=== PATIENT | female | born 1945 | race Caucasian/White ===

== ENCOUNTER 2018-02-05 15:49 | Outpatient (CLI) | payer MEDICARE, OTHER | END 2018-02-05 15:50 | disposition critical access hospital (66) | LOC: EMS 15:49 | PROVIDERS: ATTEND Surgery | DX: R51 Headache (principal); R41.0 Disorientation, unspecified | CPT/HCPCS: A0425; A0429 ==

== ENCOUNTER 2018-02-05 16:19 | Observation (INO) | payer MEDICARE, OTHER ==
--- NOTE | 2018-02-05 16:51 | ED Physician Documentation ---
History of Present Illness - Stated complaint Stated Complaint: CONFUSIN / HEADACHE - Chief complaint Chief Complaint: General - History obtained from History obtained from: Patient - History of Present Illness Timing: Today (About 1 PM today she became acutely confused with word finding difficulties and a mild headache. Of note she has a history of PEs and coronary disease status post CABG and stents. She is on both Xarelto and Plavix. The headache is much better but not quite gone and the same is true of her word finding difficulties.) Review of Systems Ten Systems: 10 systems reviewed and negative Constitutional: denies: Fever, Chills Throat: denies: Dental pain / toothache, Sore throat Cardiac: denies: Chest pain / pressure, Palpitations Respiratory: denies: Dyspnea, Cough PD PAST MEDICAL HISTORY - Present Medications Home Medications: Ambulatory Orders Medication Instructions Recorded Confirmed Citalopram [CeleXA] 40 mg PO DAILY 02/05/18 02/05/18 Clopidogrel [Plavix] 75 mg PO DAILY 02/05/18 02/05/18 Isosorbide Mononitrate ER [Imdur] 30 mg PO DAILY 02/05/18 02/05/18 Pantoprazole [Protonix] 40 mg PO DAILY PM 02/05/18 02/05/18 RX: Atenolol 12.5 mg PO DAILY PM 02/05/18 02/05/18 RX: Buspirone HCl 10 mg PO BID 02/05/18 02/05/18 RX: Ferrous Sulfate 325 mg PO DAILY PM 02/05/18 02/05/18 RX: Meloxicam 15 mg PO DAILY 02/05/18 02/05/18 RX: Nefazodone HCl 100 mg PO DAILY 02/05/18 02/05/18 RX: Nefazodone HCl 400 mg PO QPM 02/05/18 02/05/18 RX: Pravastatin Sodium 80 mg PO 02/05/18 Rivaroxaban [Xarelto] 20 mg PO DAILY 02/05/18 02/05/18 Zolpidem [Ambien] 10 mg PO HS 02/05/18 02/05/18 amLODIPine [Norvasc] 2.5 mg PO DAILY 02/05/18 02/05/18 - Allergies Allergies/Adverse Reactions: Allergies Allergy/AdvReac Type Severity Reaction Status Date / Time buspirone [From BuSpar] AdvReac Mild Headache Verified 02/05/18 17:00 Penicillins AdvReac Dizziness Verified 02/05/18 17:00 PD ED PE NORMAL - Vitals Vital signs reviewed: Yes - General General: Alert and oriented X 3, No acute distress - HEENT HEENT: PERRL, EOMI - Neck Neck: Supple, no meningeal sign, No bony TTP, No bruit - Cardiac Cardiac: RRR, No murmur - Respiratory Respiratory: No respiratory distress, Clear bilaterally - Abdomen Abdomen: Normal bowel sounds, Soft, Non tender - Neuro Neuro: Alert and oriented X 3, Normal speech, Other (She has very mild occasional word finding difficulties, but scores a 0 on the NIHSS) - Psych Psych: Normal mood, Normal affect Results - Vitals Vitals: Vital Signs - 24 hr 02/05/18 02/05/18 02/05/18 16:29 16:44 18:27 Temperature 36.6 C Heart Rate 66 64 63 Respiratory 16 18 15 Rate Blood Pressure 157/78 H 157/78 H 145/75 H O2 Saturation 100 100 96 02/05/18 19:05 Temperature Heart Rate 68 Respiratory 17 Rate Blood Pressure 162/74 H O2 Saturation 98 Oxygen O2 Source Room air - EKG (time done) 1724 Rate: Rate (enter#) (62) Rhythm: NSR [place]: Normal Intervals: Normal MA Ischemia: Non specific changes (Nonspecific findings including long QT, RSR prime in V1, left anterior fascicular block. No priors for comparison.) - Labs Labs: Laboratory Tests 02/05/18 02/05/18 17:00 17:00 WBC 7.8 RBC 4.26 Hgb 12.9 Hct 38.3 MCV 89.9 MCH 30.2 MCHC 33.6 RDW 14.2 Plt Count 270 MPV 8.4 Neut # (Auto) 4.8 Lymph # (Auto) 1.7 [place] # (Auto) 0.9 Eos # (Auto) 0.3 Baso # (Auto) 0.1 Absolute Nucleated RBC 0.00 Nucleated RBC % 0.1 Sodium 140 Potassium 3.8 Chloride 105 Carbon Dioxide 27 Anion Gap 8.0 BUN 15 Creatinine 0.6 Estimated GFR (MDRD) 99 Glucose 105 H Calcium 9.0 Total Bilirubin 0.5 AST 18 ALT 18 Alkaline Phosphatase 64 Total Protein 6.5 L Albumin 3.5 Globulin 3.0 Albumin/Globulin Ratio 1.2 Lipase 27 PD MEDICAL DECISION MAKING - ED course ED course: 72-year-old woman with acute word finding difficulty, much better on arrival and continued to improve during her ER stay. Consistent with a TIA. Head CT normal. She had specific concerns and there was a delay to admission because s he wanted to make sure that the observation stay would be paid for. I spoke with [facility] and they felt that it would be covered. She has Medicare primary period. Call to Dr. Culp for observation at 6:55 PM. - Sepsis Event Vital Signs: Vital Signs - 24 hr 02/05/18 02/05/18 02/05/18 16:29 16:44 18:27 Temperature 36.6 C Heart Rate 66 64 63 Respiratory 16 18 15 Rate Blood Pressure 157/78 H 157/78 H 145/75 H O2 Saturation 100 100 96 02/05/18 19:05 Temperature Heart Rate 68 Respiratory 17 Rate Blood Pressure 162/74 H O2 Saturation 98 Oxygen O2 Source Room air Departure - Departure Disposition: ED Place in Observation Clinical Impression: TIA (transient ischemic attack) Condition: Good Record reviewed to determine appropriate education?: Yes Discharge Date/Time: 02/05/18 19:45
[2018-02-05 17:05] LABS: BASOPHILS # (AUTO) 0.1 10^3/uL (0.0-0.1); BASOPHILS % (AUTO) 0.9 %; EOSINOPHILS # (AUTO) 0.3 10^3/uL (0.0-0.7); EOSINOPHILS % (AUTO) 3.5 %; HGB - HEMOGLOBIN 12.9 g/dL (12.0-16.0); LYMPHOCYTES # (AUTO) 1.7 10^3/uL (1.5-3.5); LYMPHOCYTES % (AUTO) 22.4 %; MEAN CORPUSCULAR HEMOGLOBIN 30.2 pg (27.0-31.0); MEAN CORPUSCULAR HGB CONC 33.6 g/dL (32.0-36.0); MEAN CORPUSCULAR VOLUME 89.9 fL (81.0-99.0); MEAN PLATELET VOLUME 8.4 fL (7.9-10.8); MONOCYTES # (AUTO) 0.9 10^3/uL (0.0-1.0); MONOCYTES % (AUTO) 11.4 %; NEUTROPHILS # (AUTO) 4.8 10^3/uL (1.5-6.6); NEUTROPHILS % (AUTO) 61.8 %; PLT - PLATELET COUNT 270 10^3/uL (130-450); RED BLOOD COUNT 4.26 10^6/uL (4.20-5.40); RED CELL DISTRIBUTION WIDTH 14.2 % (12.0-15.0); WHITE BLOOD COUNT 7.8 x10^3/uL (4.8-10.8)
[2018-02-05 17:22] LABS: ALBUMIN 3.5 g/dL (3.2-5.5); ALBUMIN/GLOBULIN RATIO 1.2 (1.0-2.2); BILIRUBIN,TOTAL 0.5 mg/dL (0.2-1.0); CREATININE 0.6 mg/dL (0.4-1.0); TOTAL PROTEIN 6.5 g/dL (6.7-8.2)
--- NOTE | 2018-02-05 17:42 | CT Report ---
Reason: TIA sx Procedure Date: 02/05/2018 Accession Number: [id number] / [id number] Procedure: CT - Head W/O CPT Code: FULL RESULT: EXAM: CT HEAD EXAM DATE: 02/05/2018 05:14 PM. CLINICAL HISTORY: TIA sx. COMPARISON: None. TECHNIQUE: Multiaxial CT images were obtained from the foramen magnum to the vertex. Reformats: Sagittal and coronal. IV contrast: None. In accordance with CT protocol optimization, one or more of the following dose reduction techniques were utilized for this exam: automated exposure control, adjustment of mA and/or KV based on patient size, or use of iterative reconstructive technique. FINDINGS: Parenchyma: No intraparenchymal hemorrhage. No evidence of mass, midline shift, or CT findings of acute infarction. Dotson-white differentiation is distinct. Diffuse chronic microangiopathic white matter changes are evident. Extraaxial Spaces: Normal for age. No subdural or epidural collections identified. Ventricles: The ventricles and cortical sulci are enlarged, consistent with age-related tissue loss. Sinuses and orbits: Imaged paranasal sinuses, orbits, and mastoids show no significant abnormality. Bones: No evidence of fracture or calvarial defect. Incidental note of hyperostosis frontalis. Other: None. IMPRESSION: Generalized age-related cortical atrophic changes without evidence of acute intracranial abnormality. RADIA
[2018-02-05] MEDS ORDERED: SODIUM CHLORIDE FLUSH 0.9% 10 ML SYRINGE IVP PRN (19:13)
[2018-02-05] MEDS ORDERED: ONDANSETRON 4 MG/2 ML VIAL IVP PRN (19:23)
[2018-02-05] MEDS ORDERED: ACETAMINOPHEN 325 MG TABLET PO PRN (19:23)
[2018-02-05] MEDS ORDERED: ONDANSETRON ODT 4 MG TABLET TL PRN (19:23)
[2018-02-05] MEDS ORDERED: oxyCODONE 5 MG TABLET PO PRN (19:23)
[2018-02-05] MEDS ORDERED: ZOLPIDEM 5 MG TABLET PO SCH (21:00)
--- NOTE | 2018-02-05 22:15 | ADVANCE CARE PLANNING NOTE ---
Advance Care Planning - Date/Time Date: 02/05/18 Time: 21:00 - Purpose of encounter Text: Establish her understanding of her disease state considering she has had several cardiac procedures, now having a TIA - Parties in attendance Parties in attendance: Patient and hospitalist, Dr. Jasso - Decisional capacity Decisional capacity of: Patient is minimally impaired. She occasionally has problems remembering words. For instance she does not remember the words "[place]". - Subjective/Patient's story Subjective/Patient's story: She was born and raised in being into [place]. From bang time she went to go live in [place] by 1977. 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 As the years have gone by, her job is very stressful. She ended up going on SSI for severe depression by the age of 59 because of the stresses of her job. 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 However by 2007, with a housing crisis, she was unable to meet the mortgage on both her house and the condominium and ended up losing both. She has gone from living independently in her own home with a decent wage to living on a restricted income of $1300 a month and living in subsidized senior housing in [place]. As she is gotten used to living there, she actually likes it. She just has to be careful to not get into her social work mindset because she ends up helping all of her neighbors. She will end up faring people to doctor's appointments and grocery stores because she is the only one with a car. 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 The [employer] which sold her house recently contacted her and told her that she had $9000 left in her escrow account. So the patient took some of the money to make this trip to [facility]. From [facility] she will go to [place], and then [place]. Unfortunately she started having symptoms of a TIA today and had to be brought to the hospital. While she does have a small social network of friends, she is starting to realize that as she gets older she cannot rely on her friends to take care of her. One sister lives in [place], [place] and has quite a bit of anxiety. She was able to stay with her sister for about 3 months when her apartment had to renovated in [place]. She is not very close to her sister, and it was not a pleasant visit because her sister is very demanding and anxious. Ms Chávez also does not like [place]. Her other brother lives in [place] and her second brother lives in [facility] near [facility]. She is not very close to them. From a functional perspective she still drives her own car, pays her own bills, takes care of entireties her own little apartment. She goes to cardiopulmonary physical therapy 3 times a week. 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 She is finding it harder and harder to get around because of low back pain that radiates down her legs. Left leg is worse than the right. Pain is worse with movement and eliminated by rest. She finds at night her legs do not hurt at all in her best position for lack of pain is to be sitting down or laying down. She worries about that and worries about losing her memory. But she tries not to think about the inevitability of her disease. When I ask her about her understanding of heart disease, and now with this TIA and how that plays into each other, she is tearful. She is frightened. She says that at some level she understands that she will have a heart attack or stroke much like her mother or father but she prefers not to think about it. Her favorite coping mechanism is denial. And she knows it. She says that the information I am giving her frightens her. She is so terrified of dying that she would prefer staying alive disabled in a long-term. But then she laments that she will be in a long-term where no one will visit her because none of her friends are close enough to her to want to visit her in a long-term. So then she worries about being lonely. For short time she was a social organization professor in a assisted facility and realizes that she never wants to end up like those clients. In addition to her fears, she gets very annoyed when her sister talks to her about this. Her sister wants her to make plans. Her sister is more blunt and basically says she needs to be planning her . This annoys the patient. Her sister is afraid that she will end up being the person and has to make decisions for the patient. So the patient feels like her sister is asking her these questions out of her own fear of responsibility and not out of love and concern. So she feels like she is being mulish, crosses her arms across her chest, and says "I am just not go to think about it". - Objective/Medical story Objective/Medical Story: She is a 72-year-old female who has coronary artery disease. First bypass surgery was in 2007, and when she developed terrible shortness of breath and dyspnea on exertion she underwent a second procedure with a single stent in 2015. By the spring 2017 she was continued to have shortness of breath and she received 3 more stents. Somewhere in that time, she was found to have pulmonary embolism. Her shortness of breath was not going away with the stenting. So the surgery other causes of the shortness of breath and found to be having PEs. At that point in time she was on estrogen replacement therapy and the estrogen replacement therapy was stopped. They also feel that she leads a relatively sedentary life even though she goes to cardiopulmonary rehab 3 times a week. Past medical history is that of high blood pressure, coronary artery disease, chronic depression on SSI, chronic insomnia requiring nightly Ambien, pulmonary embolism, obstructive sleep apnea for which she supposed to be on CPAP but forgot to bring those with her on this trip. In the emergency room she has some word finding difficulty. But is otherwise stable on neurological exam. CT of the head is negative. An EKG shows normal sinus rhythm. She is a [facility] patient. And is very concerned about her observa tion status costing her more money. The emergency room physician did contact [facility] and they feel that it is okay for her to be observation status in our hospital as opposed to the [facility]. She is now placed in observation for carotid Dopplers, and echocardiogram. In discussing her CODE STATUS she wants to be a full code. This then led to a discussion on what resuscitation means, and the above discussion about her fears of dying. She is starting to realize that DO NOT RESUSCITATE does not necessarily mean do not treat. - Goals of Care Goals of care determinations: She would like to remain in her little apartment in [place] for as long as possible. She has no interest in moving to [place] or [place] to be near her siblings. She feels that she is not emotionally close enough to them to warrant moving across the country. She also feels that her depression would kick in and she may never recover from a depressive episode if she leaves her little "nest of comfort". Although she fears dementia, she feels that she can stay in her apartment even if she loses her car. There is enough mass transit nearby that she has access to healthcare, food, the library, [employer], and some of her friends that she can remain in her apartment. However, if memory loss becomes difficult, she has not figured out what she wants to do. At this point she would still like to be resuscitated fully. She initially thought the DO NOT RESUSCITATE means do not treat. I explained to her that if she came in septic with multisystem organ failure, we would give her antibiotics, a central line with pressors to keep her blood pressure up, IV hydration, blood products, possibly even temporary tube feedings to see if she turned the corner. If she did not recover from this hypothetical illness, eventually her heart and lungs with stop working. Then we would resuscitate her with chest compressions, continued ventilation support. When I put it to her that way she realized that she may want to consider full treatment options short of chest compressions and intubation in the event of terminal cardiopulmonary arrest. But she is still not ready to make that decision yet. - Plan Plan: Sit down and talk to her counselor about her fears. Described that her fears do not allow her to make decisions that time. See if there is a way that she can get over her fear somewhat to start making plans for the future. Make sure that her wishes are documented. There is a 5 wishes document. There is a POLST form. There is an Advanced Directive. Consider utilizing those tools to communicate her wishes to her family and her doctors. 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 But again, in her fears of dying, she has not wanted to make any proactive decisions with regards to her own end-of-life care. For instance, I asked if she ever wanted palliative care in the last few years of life? Does she want to remain in her own apartment with hospice at end of life? Is it okay if she is placed in a assisted facility if she is so disabled that she can no longer live in her own apartment? All of these questions do not need to be answered now. But the preliminary thought process or start happening so that she can slowly wrap her mind around her fears and make practical plans for the future. I told her that I was very impressed with the plan she is made so far. She lives in senior subsidized housing in a very nice neighborhood. She has excellent access to healthcare, food, senior services. Even if she loses her car she will still be able to access those things. After this admission for observation, depending on the findings of the carotid Dopplers and echocardiogram, I have reassured her that she can continue her trip. Her next stop is [place], and after that she plans on going down [facility] visiting friends [facility]. She is on maximal medical therapy. There is not much more we are going to change at this time. Her risk of stroke is the same now as it was yesterday or next month. I would advise her to live her life the fullest she can. - Code Status Code Status: Attempt Resuscitation - Time Spent on Advance Care Planning Time spent on advance care plannin minutes.
--- NOTE | 2018-02-05 22:33 | HISTORY & PHYSICAL EXAMINATION ---
Chief Complaint - Chief Complaint Chief Complaint: inability to find her words History of Present Illness - Admitted From Admitted From:: ER/friend's home - History Obtained From Records Reviewed: [facility] History obtained from: The patient and Dr. Stern Exam Limitations: Occasional anxiety and feeling overwhelmed - History of Present Illness HPI Comment/Other: She is a joslyn 72-year-old female who usually lives in [facility]. Her atherosclerotic risk factors include documented history of coronary artery d isease with bypass surgery and stenting, hypertension, hyperlipidemia, a severely positive family history. But she does not smoke and she does not have diabetes. She had her first bypass surgery in 2007. Terrible shortness of breath resulted in a single stent in 2015. Another recurrence of terrible shortness of breath resulted in 3 stents in August 2017. In spite of the stenting she continued to be very short of breath and was found to have pulmonary emboli while on estrogen replacement therapy. The estrogen replacement therapy has been stopped, she is having a lot of hot flashes, but her shortness of breath is gotten a lot better. She has not had any problems with neurological deficits before. She recently came into a little bit of money and decided to spend it visiting friends. She went from the [facility] area and flew to [place]. She has been here 2 days visiting her friends here on [facility]. Her next step is to leave the [place] and then continue to [place] via bus, and then continue travel down the [facility] back to [place], seeing friends along the way. Around 1:00 today, she became acutely confused. She could not remember where she was. She could not she did not know if she was in [place] or here in [place]. She started having word finding difficulties and had lucid intact sentences but was forgetting how to say certain words. She had a mild diffuse headache. By the time she got to the emergency room, all of her symptoms were gone. No blurred vision. No focal deficits. No ataxia. Dr. Willams found her to be mildly hypertensive at 157/78, afebrile, oxygenating normally with no acute focal changes on physical exam. She was still having problems finding her words to a very minimal extent. For instance she could not remember how to say [place]. CT of the head is negative. Stroke scale is 0. She is now placed in observation for carotid Dopplers and echocardiogram. MRI is not available at this facility over the weekend. She will need to follow-up with her primary care provider through [facility] in [place] to get that done. History - Past Medical History Cardiovascular: reports: Hypertension, High cholesterol, Coronary artery disease (With ACB 2007, single stent 2015, 3 stents August 2017. Presents as chest pain and severe shortness of breath. ), Deep vein thrombosis, Pulmonary embolism (Presented a severe shortness of breath at the same time as her 3 stenting in August 2017. Attributed to use of hormone replacement therapy and sedentary lifestyle), ND Respiratory: reports: None, Sleep apnea, CPAP use (Did not bring the hose with the machine with her and has not been using it for 3 days) Neuro: reports: Tremors Endocrine/Autoimmune: reports: None GI: reports: GERD (No formal diagnosis. But she has quite a bit of reflux and dyspepsia. Has not had an EGD. Does not remember if she has had an upper GI.) [facility]: reports: Other (. Menopause around age 51. Estrogen replacement therapy until age 72. Now having a lot of hot flashes and anxiety) : reports: None HEENT: reports: Other (Early cataracts) Psych: reports: Depression (Severe and chronic. 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 Sees a psychiatrist every 6 months. Suicidal thoughts but no active planning for it.), Anxiety Musculoskeletal: reports: None Derm: reports: None - Past Surgical History General: reports: Appendectomy /[facility]: reports: Oophrectomy Cardiovascular: reports: CABG, Coronary stent - Family & Social History Family History Comment/Other: Mom had a stroke at age 50 and eventually of his complications at the age of 58. Dad at age 58 of 2 myocardial infarctions. One sister recently had a stent at the age of 74 a few months ago. 2 brothers. One had a stent when he was in his mid 60s. No children Living arrangement: At home Living Situation: Alone, Other (Subsidized [facility] housing) Social History Notes: Born in being him to [place] admitted to [place] by a 1978. 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 For short time she also was a social work assistant in a [facility] facility. She has never been . She lives alone. She smoked lightly in college. Probably 2-3 cigarettes a day for 4 years. Never had a problem with alcohol abuse. Heterosexual. No recreational substance abuse. - Substance History Use: Uses substance without health or social issues: NONE Abuse: Recurrent use of substance despite neg consequences: NONE Dependence: Experiences withdrawal or developed tolerances: NONE - POLST Patient has POLST: No POLST Status: Full Code Meds/Allgy - Home Medications Home Medications: Ambulatory Orders Medication Instructions Recorded Confirmed Atenolol 12.5 mg PO DAILY PM 02/05/18 02/05/18 Buspirone HCl 10 mg PO BID 02/05/18 02/05/18 Citalopram [CeleXA] 40 mg PO DAILY 02/05/18 02/05/18 Clopidogrel [Plavix] 75 mg PO DAILY 02/05/18 02/05/18 Ferrous Sulfate 325 mg PO DAILY PM 02/05/18 02/05/18 Isosorbide Mononitrate ER [Imdur] 30 mg PO DAILY 02/05/18 02/05/18 Meloxicam 15 mg PO DAILY 02/05/18 02/05/18 Nefazodone HCl 100 mg PO DAILY 02/05/18 02/05/18 Nefazodone HCl 400 mg PO QPM 02/05/18 02/05/18 Pantoprazole [Protonix] 40 mg PO DAILY PM 02/05/18 02/05/18 Pravastatin Sodium 80 mg PO 02/05/18 Rivaroxaban [Xarelto] 20 mg PO DAILY 02/05/18 02/05/18 Zolpidem [Ambien] 10 mg PO HS 02/05/18 02/05/18 amLODIPine [Norvasc] 2.5 mg PO DAILY 02/05/18 02/05/18 - Allergies Allergies/Adverse Reactions: Allergies Allergy/AdvReac Type Severity Reaction Status Date / Time buspirone [From BuSpar] AdvReac Mild Headache Verified 02/05/18 17:00 Penicillins AdvReac Dizziness Verified 02/05/18 17:00 Review of Systems - Constitutional Constitutional: denies: Fatigue, Fever, Chills, Malaise, Weakness, Weight gain, Weight loss - Eyes Eyes: denies: Pain, Irritation, Amaurosis, Blurred vision - Ears, Nose & Throat Ears, Nose & Throat: denies: Ear pain, Hearing loss, Hearing aids, Tinnitus, Vertigo, Nasal pain, Nasal congestion, Postnasal drainage - Cardiovascular Cariovascular: denies: Irregular heart rate, Palpitations, Chest pain, Edema, Lightheadedness, Syncope, Exertional dyspnea, Decr. exercise tolerance - Respiratory Respiratory: reports: Apnea. denies: Cough, Sputum production, Wheezing, Snoring, SOB at rest, SOB with exertion - Gastrointestinal Gastrointestinal: reports: Reflux/heartburn (For years. Getting slightly worse. Not being relieved even on a chronic proton pump inhibitor for months.). denies: Abdominal pain, Abdominal distention, Constipation, Diarrhea, Change in bowel habits, Rectal bleeding - Genitourinary Genitourinary: denies: Dysuria, Frequency, Urgency, Hematuria, Incontinence, Flank pain - Musculoskeletal Musculoskeletal: reports: Back pain, Muscle weakness (When she walks too far her legs start to burn and ache, left worse than right. Her lower back starts to ache. She sits down and it all goes away within a few minutes. The pain is in her legs off and on all day long. Her doctor thought it was a statin so stopped it for 2 weeks and it never got any better. So she resumed her statin. The pain goes away at night.). denies: Muscle pain - Integumentary Integumentary: denies: Rash, Pruritis, Lesions - Neurological Neurological: reports: Headache, Memory problems. denies: General weakness, Fo javed weakness, Dizziness, Numbness - Psychiatric Psychiatric: reports: Depression, Anxiety, Suicidal (thoughts but never had plans. sees a psychiatrist and counsellor every 6 months.) - Endocrine Endocrine: denies: Polyuria, Polydypsia - Hematologic/Lymphatic Hematologic/Lymphatic: reports: Anemia. denies: Bruising, Petechiae, Blood clots, Lymphadenopathy Exam - Vital Signs Reviewed Vital Signs: Yes Vital Signs: Vital Signs x48h Temp Pulse Pulse Resp BP BP Pulse Ox 02/05/18 19:59 36.3 C L 72 18 143/81 H 96 02/05/18 19:05 68 17 162/74 H 98 02/05/18 18:27 63 15 145/75 H 96 02/05/18 16:44 64 18 157/78 H 100 02/05/18 16:29 36.6 C 66 16 157/78 H 100 - Physical Exam General Appearance: positive: No acute distress, Alert, Other (Well-nourished well-developed white female who looks her stated age, wearing glasses. Occasionally gets tearful when having to answer some difficult questions about her life.) Eyes Bilateral: positive: PERRL, EOMI ENT: positive: Pharynx nml Neck: positive: No JVD. negative: Stiff neck, Carotid bruit Respiratory: positive: Chest non-tender. negative: Wheezes, Rales, Rhonchi Cardiovascular: positive: Regular rate & rhythm. negative: Systolic murmur, Gallop/S4, Friction rub Peripheral Pulses: positive: 2+ Abdomen: positive: Non-tender, No organomegaly, Nml bowel sounds, No distention Back: positive: Nml inspection Skin: positive: Color nml, No rash, Warm, Dry Extremities: positive: Non-tender, Full ROM, No pedal edema Neurologic/Psychiatric: positive: Oriented x3, CN's nml (2-12), Motor nml, Sensation nml, Other (At times she has problems with dates and words. As her emotions overwhelm her, she will raise her hands to her face and cover them and cry out "I cannot answer this I just cannot think". She once forgot how to say [place]. She once forgot how to say [facility] facility.) Conclusion/Plan - Problem List (1) TIA (transient ischemic attack) Conclusion/Plan: Presenting as acute verbal apraxia. No focal neurological deficits. Symptoms almost completely resolved by the time she gets to the emergency room. Stroke scale is 0. But she does have all the risk factors for cerebrovascular arteriosclerotic disease and already has concurrent coronary artery disease. Already on maximal medical therapy with Plavix, Xarelto, statin, and blood press ure lowering drugs. She is not a smoker, and does not have diabetes. Plan: Placed in observation status Complete TIA workup with carotid Dopplers and echocardiogram MRI in the outpatient setting when she returns to see her primary care provider Continue all of her medications with regards to blood pressure, cholesterol, and anticoagulation as well as platelet inhibitor. (2) Coronary artery disease with hx of myocardial infarct w/o hx of CABG Conclusion/Plan: On maximal medical therapy. At this time no chest pain. No shortness of breath. Blood pressure control. Resume her usual medications (3) Hypertension Conclusion/Plan: Usual goal in a patient who has documented risk factors will be to have a blood pressure in the 130s over 70s if not less. However, with a TIA, allow permissive hypertension. Right now she is in the 150s. She is on amlodipine and atenolol. Both of them low dose at 2.5 mg and 12.5 mg respectively. In the next 48 hours I would consider her to be candidate for raising her amlodipine or her beta-tor to twice the usual dose and to stay on them while she is on vacation. Qualifiers: Hypertension type: essential hypertension Qualified Code(s): I10 - Essential (primary) hypertension (4) Depression with anxiety Conclusion/Plan: Continue her citalopram. Advanced care planning conversation Of over 60 minutes documented under separate dictation (5) Chronic insomnia Conclusion/Plan: She takes Ambien on a daily basis. When she does not take it she starts feeling horrible the next day. She most likely has benzodiazepine tolerance if not addiction. Consider doing a drug holiday. She at first thought I meant do cold turkey like her counselor suggested she might want to try. I told her that just a little too brittle. Why does not she start dropping 1 or 2 pills a week. Do that for a month or 2. Then 3 pills a week for 1 or 2 months. Then 4 pills a week. Then use the Ambien as needed. (6) Obstructive sleep apnea on CPAP Conclusion/Plan: Unfortunately she is without it. I did explain to her that sometimes obstructive sleep apnea that is untreated is associated with stroke. At this point in time I do not think we can get her tubing, etc. to continue on her vacation. As soon as she gets home to make sure she resumes it. (7) Pseudoclaudication Conclusion/Plan: She certainly gives a classic history of bilateral leg pain worse with exertion, completely resolves with rest. Better when she is sitting or lying down and worse with standing and walking. She has got great foot pulses. No ischemia on leg exam. Plan: Would recommend she get an MRI of the spine. Discussed her findings with neurosurgery or orthopedic surgery to see if risk versus benefit discussion would help her make up her mind about what to do. (8) Gastroesophageal reflux disease Conclusion/Plan: She has had this for several years. Not improved with proton pump inhibitors or antacids. Would recommend an EGD in the outpatient setting. She does not remember if she has had one. The EGD would be looking for Coffey's esophagus, size of hiatal hernia. Qualifiers: Esophagitis presence: esophagitis presence not specified Qualified Code(s): K21.9 - Gastro-esophageal reflux disease without esophagitis - Lab Results Fish Bones: 02/05/18 17:00 02/05/18 17:00 - Diagnostic Imaging Results Diagnostic Imaging Results: positive: Final report reviewed Diagnostic Imaging Results Comments: CT of head: FINDINGS: Parenchyma: No intraparenchymal hemorrhage. No evidence of mass, midline shift, or CT findings of acute infarction. Dotson-white differentiation is distinct. Diffuse chronic microangiopathic white matter changes are evident. Extraaxial Spaces: Normal for age. No subdural or epidural collections identified. Ventricles: The ventricles and cortical sulci are enlarged, consistent with age-related tissue loss. Sinuses and orbits: Imaged paranasal sinuses, orbits, and mastoids show no significant abnormality. Bones: No evidence of fracture or calvarial defect. Incidental note of hyperostosis frontalis. Other: None. IMPRESSION: Generalized age-related cortical atrophic changes without evidence of acute intracranial abnormality. - EKG Results EKG Interpreted Independently: Yes EKG Comparison: No prior EKG EKG Findings: NSR. Deep Q in II, AvF. RSR' in V1 and V2. LAD. C/W LAFB. NSSTTW changes. Core Measures - Anticipated LOS I expect patient to be DC'd or transferred within 96 hours.: Yes - DVT/VTE - Prophylaxis VTE/DVT Device ordered at admit?: Yes
[2018-02-05] MEDS: SODIUM CHLORIDE FLUSH 0.9% 10 ML SYRINGE IVP SCH (23:39)
[2018-02-06 06:24] LABS: CHOL/HDL RATIO 4.6 (<4.4); CHOLESTEROL 198 mg/dL; HDL CHOLESTEROL 43 mg/dL; LDL CHOLESTEROL,CALCULATED 126 mg/dL; LDL/HDL RATIO 2.9 (<4.4); VLDL CHOLESTEROL 29 mg/dL
[2018-02-06] MEDS ORDERED: CLOPIDOGREL 75 MG TABLET PO SCH (09:00)
[2018-02-06] MEDS ORDERED: ATENOLOL 25 MG TABLET PO SCH (09:00)
[2018-02-06] MEDS ORDERED: amLODIPine 5 MG TABLET PO SCH (09:00)
[2018-02-06] MEDS ORDERED: CITALOPRAM 10 MG TABLET PO SCH (09:00)
[2018-02-06] MEDS ORDERED: ISOSORBIDE MONONITRATE ER 30 MG TABLET PO SCH (09:00)
[2018-02-06] MEDS ORDERED: POLYETHYLENE GLYCOL 3350 17 GM PACKET PO SCH (09:00)
[2018-02-06] MEDS: SODIUM CHLORIDE FLUSH 0.9% 10 ML SYRINGE IVP SCH (09:05)
[2018-02-06 12:36] LABS: BILIRUBIN,URINE NEGATIVE (NEGATIVE); GLUCOSE, URINE (UA) NEGATIVE (NEGATIVE); KETONES,URINE (UA) NEGATIVE (NEGATIVE); LEUKOCYTE ESTERASE, URINE NEGATIVE (NEGATIVE); NITRITE,URINE NEGATIVE (NEGATIVE); OCCULT BLOOD,URINE TRACE-INTA (NEGATIVE); PH,URINE 7.5 PH (5.0-7.5); PROTEIN,URINE NEGATIVE (NEGATIVE); UROBILINOGEN,URINE 0.2 (NORMAL) E.U./dL (NORMAL)
[2018-02-06 12:37] LABS: CLARITY,URINE CLEAR (CLEAR)
--- NOTE | 2018-02-06 13:51 | Ultrasound Report ---
Reason: sudden verbal apraxia Procedure Date: 02/06/2018 Accession Number: [id number] / [id number] Procedure: US - Carotid Doppler Complete CPT Code: FULL RESULT: EXAM: BILATERAL CAROTID AND VERTEBRAL ARTERY DUPLEX DOPPLER ULTRASOUND: EXAM DATE: 02/06/2018 10:38 AM CLINICAL HISTORY: Sudden verbal apraxia. COMPARISON: None. TECHNIQUE: Grayscale imaging, color Doppler, and duplex spectral Doppler were used to evaluate the carotid and vertebral arteries bilaterally. Static images were obtained. FINDINGS: Mild plaquing of the right and left proximal internal carotid arteries. No significant plaque is identified in the right or left common or internal carotid arteries. Normal antegrade flow is present in bilateral vertebral arteries. VELOCITIES (cm/sec): Right CCA mid: PSV 64 cm/sec CCA dist: PSV 62 cm/sec ICA prox: PSV 60 cm/sec, EDV 15 cm/sec ICA mid: PSV 67 cm/sec, EDV 19 cm/sec ICA dist: PSV 27 cm/sec, EDV 8 cm/sec ECA: PSV 97 cm/sec Vert: PSV 59 cm/sec ICA/CCA: 1.08 Left CCA mid: PSV 83 cm/sec CCA dist: PSV 92 cm/sec ICA prox: PSV 54 cm/sec, EDV 17 cm/sec ICA mid: PSV 46 cm/sec, EDV 17 cm/sec ICA dist: PSV 73 cm/sec, EDV 28 cm/sec ECA: PSV 81 cm/sec Vert: PSV 55 cm/sec ICA/CCA: 0.80 ICA diameter stenosis: Right: <50% by velocity and <70% by NASCET criteria. Left: <50% by velocity and <70% by NASCET criteria. IMPRESSION: 1. No significant bilateral carotid artery plaquing. 2. In the right carotid artery there are no elevated carotid artery velocities to suggest hemodynamically significant stenosis. 3. In the left carotid artery there are no elevated carotid artery velocities to suggest hemodynamically significant stenosis. 4. Normal antegrade flow is present in bilateral vertebral arteries. General Recommendations: Stenosis =50% ICA - Follow-up ultrasound 6-12 months Stenosis <50% ICA - High Risk Patient with plaque - Follow-up ultrasound 1-2 years Normal Study but High Risk Patient - Follow-up ultrasound 3-5 years Management recommendations and diagnostic criteria are based on current IAC endorsed standards in Carotid Artery Stenosis: Grayscale and Doppler Ultrasound Diagnosis. Validated velocity measurements with angiographic measurements and velocity criteria are extrapolated from diameter data as defined by the Society of Radiologists in Ultrasound Consensus Conference Radiology 2003; 229;340-346. RADIA
--- NOTE | 2018-02-06 14:02 | Discharge Plan ---
Discharge Plan Disposition: 01 Home, Self Care Condition: Poor Diet: Regular Activity Restrictions: Activity as Tolerated Shower Restrictions: No (fall precaution) Instruction Topics: TIA Additional Instructions or Follow Up instructions: You may follow up your PCP in one week, may have MRI of your brain and spine for further evaluate your TIA and pseudoclaudication. Should your symptoms return or worsen, you may present ER or call 911 for help No Smoking: If you smoke, Please STOP! Call for help.
--- NOTE | 2018-02-06 14:07 | DISCHARGE SUMMARY ---
Discharge Summary Discharge Date: 02/06/18 Discharging Provider: MARINA Condition at Discharge: Poor Discharge Disposition: 01 Home, Self Care Discharge Facility Name: home - DIAGNOSES Admission Diagnoses: (1) TIA (transient ischemic attack) (2) Coronary artery disease with hx of myocardial infarct w/o hx of CABG (3) Hypertension (4) Depression with anxiety (5) Chronic insomnia (6) Obstructive sleep apnea on CPAP (7) Pseudoclaudication (8) Gastroesophageal reflux disease Discharge Diagnoses with Status of Each Condition: (1) TIA (transient ischemic attack) pt does not present any focal neurological deficit now. her speech is normal now per pt report. ECHO, per ECHO detector person reported to me, it is normal. US of Carotid is unremarkable. pt is advise to follow up her PCP for MRI of her brain. (2) Coronary artery disease with hx of myocardial infarct w/o hx of CABG stable, ECHO is normal (3) Hypertension stable (4) Depression with anxiety stable, follow up PCP (5) Chronic insomnia stable (6) Obstructive sleep apnea on CPAP stable, RT help pt restore her CPAP machine. (7) Pseudoclaudication stable, advise pt follow up her PCP to have MRI of spine for further evaluation (8) Gastroesophageal reflux disease stable - HPI History of Present Illness: refer from Dr. Jasso's HPI for pt as the following: She is a joslyn 72-year-old female who usually lives in [facility]. Her atherosclerotic risk factors include documented history of coronary artery disease with bypass surgery and stenting, hypertension, hyperlipidemia, a severely positive family history. But she does not smoke and she does not have diabetes. She had her first bypass surgery in 2007. Terrible shortness of breath resulted in a single stent in 2015. Another recurrence of terrible shortness of breath resulted in 3 stents in August 2017. In spite of the stenting she continued to be very short of breath and was found to have pulmonary emboli while on estrogen replacement therapy. The estrogen replacement therapy has been stopped, she is having a lot of hot flashes, but her shortness of breath is gotten a lot better. She has not had any problems with neurological deficits before. She recently came into a little bit of money and decided to spend it visiting friends. She went from the [facility] area and flew to [place]. She has been here 2 days visiting her friends here on [facility]. Her next step is to leave the [place] and then continue to [place] via bus, and then continue travel down the [facility] back to [place], seeing friends along the way. Around 1:00 today, she became acutely confused. She could not remember where she was. She could not she did not know if she was in [place] or here in [place]. She started having word finding difficulties and had lucid intact sentences but was forgetting how to say certain words. She had a mild diffuse headache. By the time she got to the emergency room, all of her symptoms were gone. No blurred vision. No focal deficits. No ataxia. Dr. Willams found her to be mildly hypertensive at 157/78, afebrile, oxygenating normally with no acute focal changes on physical exam. She was still having problems finding her words to a very minimal extent. For instance she could not remember how to say [place]. CT of the head is negative. Stroke scale is 0. She is now placed in observation for carotid Dopplers and echocardiogram. MRI is not available at this facility over the weekend. She will need to follow-up with her primary care provider through [facility] in [place] to get that done. - ALLERGIES Allergies/Adverse Reactions: Allergies Allergy/AdvReac Type Severity Reaction Status Date / Time buspirone [From BuSpar] AdvReac Mild Headache Verified 02/05/18 17:00 Penicillins AdvReac Dizziness Verified 02/05/18 17:00 - MEDICATIONS Home Medications: Ambulatory Orders Medication Instructions Recorded Confirmed Atenolol 12.5 mg PO Q48H 02/05/18 02/06/18 Buspirone HCl 10 mg PO BID 02/05/18 02/05/18 Citalopram [CeleXA] 40 mg PO DAILY 02/05/18 02/05/18 Clopidogrel [Plavix] 75 mg PO DAILY 02/05/18 02/05/18 Ferrous Sulfate 325 mg PO DAILY PM 02/05/18 02/05/18 Isosorbide Mononitrate ER [Imdur] 30 mg PO DAILY 02/05/18 02/05/18 Meloxicam 15 mg PO DAILY 02/05/18 02/05/18 Nefazodone HCl 100 mg PO DAILY 02/05/18 02/05/18 Nefazodone HCl 400 mg PO QPM 02/05/18 02/05/18 Pantoprazole [Protonix] 40 mg PO DAILY PM 02/05/18 02/05/18 Pravastatin Sodium 80 mg PO .TWICE WEEKLY 02/05/18 02/06/18 Rivaroxaban [Xarelto] 20 mg PO DAILY 02/05/18 02/05/18 Zolpidem [Ambien] 10 mg PO HS PRN 02/05/18 02/05/18 Acetaminophen [Tylenol Extra 1,000 mg PO DAILY PRN 02/06/18 02/06/18 Strength] Docusate Sodium 100 mg PO DAILY 02/06/18 02/06/18 Ubidecarenone [Co Q-10] 300 mg PO DAILY 02/06/18 02/06/18 - PHYSICAL EXAM AT DISCHARGE General Appearance: positive: No acute distress, Alert. negative: Lethargic Eyes Bilateral: positive: Normal inspection, PERRL, No lid inflammation, Conjunctivae nml ENT: positive: ENT inspection nml, Pharynx nml, No signs of dehydration. negative: Purulent nasal drainage, Pharyngeal erythema, Oral lesions Neck: positive: Nml inspection, Thyroid nml, No JVD, Trachea midline. negative: Thyromegaly, Lymphadenopathy (R), Lymphadenopathy (L), Stiff neck, Sw elling/bruising, Tracheal deviation Respiratory: positive: Chest non-tender, No respiratory distress, Breath sounds nml. negative: Wheezes, Rales, Rhonchi Cardiovascular: positive: Regular rate & rhythm, No murmur, No gallop. negative: Irregularly irregular, Extrasystoles, Tachycardia, Bradycardia, JVD present, Systolic murmur, Diastolic murmur Peripheral Pulses: positive: 2+ Abdomen: positive: Non-tender, No organomegaly, Nml bowel sounds, No distention. negative: Tenderness, Guarding, Rebound Back: positive: Nml inspection. negative: CVA tenderness (R), CVA tenderness (L) Skin: positive: Color nml, No rash, Warm, Dry. negative: Cyanosis, Diaphoresis, Pallor Extremities: positive: Non-tender, Full ROM, Nml appearance. negative: Calf tenderness, Joint swelling, Cathy's sign/cords Neurologic/Psychiatric: positive: Oriented x3, Motor nml, Sensation nml, Mood/affect nml. negative: Weakness, Sensory loss, Facial droop, Slurred/abnml speech, Depressed mood/affect - LABS Result Diagrams: 02/05/18 17:00 02/05/18 17:00 - FOLLOW UP Follow Up: You may follow up your PCP in one week, may have MRI of your brain and spine for further evaluate your TIA and pseudoclaudication. Should your symptoms return or worsen, you may present ER or call 911 for help - TIME SPENT Time Spent in Discharge (Minutes): 50
[2018-02-06 14:15] VITALS: BP 127/63
[2018-02-06] MEDS ORDERED: RIVAROXABAN 10 MG TABLET PO SCH (17:00)
== END 2018-02-06 16:45 | disposition home or self-care (01) ==
LOC: ED 16:19 → MS2 19:13
PROVIDERS: ADMIT Specialist; ATTEND Nurse Practitioner Gerontology
DX: G45.9 Transient cerebral ischemic attack, unspecified (principal); I25.10 Atherosclerotic heart disease of native coronary artery without angina pectoris; I10 Essential (primary) hypertension; Z95.1 Presence of aortocoronary bypass graft; Z95.5 Presence of coronary angioplasty implant and graft; F41.8 Other specified anxiety disorders; F51.04 Psychophysiologic insomnia; G47.33 Obstructive sleep apnea (adult) (pediatric); Z86.711 Personal history of pulmonary embolism; Z87.891 Personal history of nicotine dependence; M54.9 Dorsalgia, unspecified; Z79.01 Long term (current) use of anticoagulants; Z79.02 Long term (current) use of antithrombotics/antiplatelets; I25.2 Old myocardial infarction; K21.9 Gastro-esophageal reflux disease without esophagitis
CPT/HCPCS: 36415; 70450; 80053; 80061; 81003; 83690; 85025; 93005; 93306; 93880; 99284; 99285; A9270; G0378; 81001; 83721; 87086